=== PATIENT | male | born 1960 | race Caucasian/White ===

== ENCOUNTER 2020-04-12 17:16 | Inpatient (IN) | payer OTHER ==
--- OUTSIDE RECORDS SUMMARY | 2020-04-12 17:22 | XMS ---
:1960 Author Organization [facility] Support Name Relationship Address Phone UE Unavailable Unavailable Unavailable DANIEL DAVILA SIGNIFICANT OTHER [address] [place] [address] Re-disclosure Warning The records that you are about to access may contain information from federally- assisted alcohol or drug abuse programs. If such information is present, then the following federally mandated warning applies: This information has been disclosed to you from records protected by federal confidentiality rules (42 CFR part 2). The federal rules prohibit you from making any further disclosure of this information unless further disclosure is expressly permitted by the written consent of the person to whom it pertains or as otherwise permitted by 42 CFR part 2. A general authorization for the release of medical or other information is NOT sufficient for this purpose. The Federal rules restrict any use of the information to criminally investigate or prosecute any alcohol or drug abuse patient.The records that you are about to access may contain highly sensitive health information, the redisclosure of which is protected by Article 27-F of the [facility] Public Health law. If you continue you may haveaccess to information: Regarding HIV / AIDS; Provided by facilities licensed or operated by the [facility] Office of Mental Health; or Provided by the [facility] Office for People With Developmental Disabilities. If such information is present, then the following [facility] mandated warning applies: This information has been disclosed to you from confidential records which are protected by state law. State law prohibits you from making any further disclosure of this information without the specific written consent of the person to whom it pertains, or as otherwise permitted by law. Any unauthorized further disclosure in violation of state law may result in a fine or skilled nursing sentence or both. A general authorization for the release of medical or other information is NOT sufficient authorization for further disclosure. Allergies and Adverse Reactions Type Description Substance Reaction Status Data Source(s ) No Known No Known Allergies No Known eCW3 ( [facility] Allergies Allergies [facility]) No Known No Known Allergies No Known eCW3 ( [facility] Allergies Allergies [facility]) Encounters Encounter Providers Location Date Indications Data Source(s ) Outpatient [facility] 09/22/2018 eCW3 ([facility] 12:00:00 AM [facility] - [facility]) 09/22/2018 12:00:[address] Est Psych [facility] 09/18/2018 eCW3 ([facility] 12:00:00 AM [facility]) 09/18/2018 12:00:00 AM EDT Medications Medication Brand Start Product Dose Route Administrative Pharmacy [facility] Indications Reaction Description Data Name Date Form Instructions Instructions Source(s) Bupropion BuPROP .0 active BuPROPion eCW3 Hydrochlori ion 2018 {tabl HCl 75 MG (H udson de 75 MG HCl 75 12:00: ets} [facility] Oral Tablet MG 00 AM Health BuPROPion EDT [facility]) HCl 75 MG Bupropion BuPROP .0 active BuPROPion eCW3 Hydrochlori ion 2018 {tabl HCl 75 MG (H udson de 75 MG HCl 75 12:00: ets} [facility] Oral Tablet MG 00 AM Health BuPROPion EDT Care) HCl 75 MG Hydroxyzine Vistar .0 active Vistari l 25 eCW3 Pamoate 25 il 2018 {caps MG (Yi MG Oral MG 12:00: ule_a [facility] Capsule 00 AM [facility] [Vistaril] EDT ded} Care) Vistaril 25 MG Hydroxyzine Vistar .0 active Vistari l 25 eCW3 Pamoate 25 il 2018 {caps MG (Yi MG Oral MG 12:00: ule_a [facility] Capsule 00 AM [facility] [Vistaril] EDT ded} Care) Vistaril 25 MG Flomax UNK active Flomax eCW3 ([facility]) Symbicort UNK active Symbicort eCW 3 ([facility]) Klonopin UNK active Klonopin eCW3 ([facility]) Ventolin UNK active Ventolin HFA e CW3 HFA ([facility]) Ventolin UNK active Ventolin HFA e CW3 HFA ([facility]) Flomax UNK active Flomax eCW3 ([facility]) Klonopin UNK active Klonopin eCW3 ([facility]) Suboxone UNK active Suboxone eCW3 ([facility]) Suboxone UNK active Suboxone eCW3 ([facility]) Gabapentin UNK active Gabapentin e CW3 ([facility]) Symbicort UNK active Symbicort eCW 3 ([facility]) Sertraline UNK active Sertraline e CW3 HCl HCl ([facility]) Sertraline UNK active Sertraline e CW3 HCl HCl ([facility]) Gabapentin UNK active Gabapentin e CW3 ([facility]) Insurance Providers Payer name Policy type Policy ID Covered Covered republican's Policy P ty / Coverage republican ID relationship to P[employer]co Inf ormation type pacheco [facility] [id number] FIRST Problems, Conditions, and Diagnoses Code Display Name Description Problem Type Effective Dates Data Source(s) F33.1 Moderate episode Moderate episode Problem 09/22/2018 eC W3 ([facility]i of recurrent of recurrent major 12:00:[address] [facility] ([place], [place]) major depressive depressive Care) disorder disorder F32.9 Reactive Reactive Problem 09/18/2018 eCW3 ([facility] depression depression 12:00:00 AM [facility] Care) F41.9 Anxiety Anxiety Problem 09/18/2018 eCW3 (Yi 12:00:00 AM [facility] Care) Results ID Date Data Source [id number] 03/01/2020 11:42:00 AM EDT [facility] Name Value Range Interpretation Description Data Sup porting Code Source(s) Document(s ) SARS-CoV-2 [facility] (COVID-19) RNA panel - Unspecified specimen by RON with probe detection This lab was ordered by and reported by [facility]. ID Date Data Source [id number] 02/25/2020 06:30:00 AM EDT [facility] Name Value Range Interpretation Description Data Sup porting Code Source(s) Document(s ) 2019 Novel [facility] Coronavirus RNA Interpretation Unspecified Specimen Qualitative RON Probe Detection This lab was ordered by Mike at [facility] - [id number] and reported by [facility]. ID Date Data Source [id number] 02/12/2020 11:57:00 PM EDT [facility] Name Value Range Interpretation Code Description Data Fior rce(s) Supporting Document(s ) Johns ID [facility] NOW COVID-19 assay This lab was ordered by [facility] and reported by [facility]. ID Date Data Source [id number] 01/20/2020 11:30:00 AM EDT [facility] Name Value Range Interpretation Code Description Data Fior rce(s) Supporting Document(s ) SARS-COV-2 [facility] PCR This lab was ordered by MAGALY SONG and re ported by [facility]. ID Date Data Source [id number] 01/19/2020 01:39:00 PM EDT [facility] Name Value Range Interpretation Code Description Data Fior rce(s) Supporting Document(s ) SARS-COV-2 [facility] PCR This lab was ordered by CHRISTOPHER Root and r eported by [facility]. ID Date Data Source [id number] 09/18/2019 04:00:00 PM EDT [facility] Name Value Range Interpretation Description Data Sup porting Code Source(s) Document(s ) 2019 Novel [facility] Coronavirus RNA Interpretation Unspecified Specimen Qualitative RON Probe Detection This lab was ordered by Mike at [facility] - [id number] and reported [facility]. Procedure Social History Code Duration Value Status Description Data Source(s ) Smoking 09/22/2018 Current Smoker completed Current Smoker eCW3 ( [facility] 12:00:00 AM [facility] [place]) Smoking 09/22/2018 Current Smoker completed Current Smoker eCW3 ( [facility] 12:00:00 AM [facility] [place]) Current Smoker completed Current Smoker eCW3 ( [facility]) Current Smoker completed Current Smoker eCW3 ( [facility]) Vital Signs ID Date Data Source UNK Name Value Range Interpretation Code Description Data Source(s) Diastolic blood 83 mm[Hg] 83 mm[Hg] eCW3 ([facility]) Systolic blood 190 mm[Hg] 190 mm[Hg] eCW3 ([facility]) Body temperature 97.6 [degF] 97.6 [degF] eCW3 ( [facility]) Heart rate 18 /min 18 /min eCW3 ([facility]) Body weight 210 [lb_av] 210 [lb_av] eCW3 ([facility]) Patient Treatment Plan of Care Planned Activity Planned Date Details Description Data Source (s) Bupropion Hydrochloride 09/22/2018 12:00:00 eCW3 ([facility] 75 MG Oral Tablet AM EDT Health Car e) Hydroxyzine Pamoate 25 MG 09/22/2018 12:00:00 eCW3 ([facility] Oral Capsule [Vistaril] AM EDT [facility]al th Care) Bupropion Hydrochloride 09/22/2018 12:00:00 eCW3 ([facility] 75 MG Oral Tablet AM EDT Health Car e) Hydroxyzine Pamoate 25 MG 09/22/2018 12:00:00 eCW3 ([facility] Oral Capsule [Vistaril] AM EDT Heal Care) Klonopin eCW3 ([facility]) Suboxone eCW3 ([facility]) Symbicort eCW3 ([facility]) Sertraline HCl eCW3 ([facility]) Gabapentin eCW3 ([facility]) Flomax eCW3 ([facility]) Ventolin HFA eCW3 ([facility]) Klonopin eCW3 ([facility]) Suboxone eCW3 ([facility]) Symbicort eCW3 ([facility]) Sertraline HCl eCW3 ([facility]) Gabapentin eCW3 ([facility]) Flomax eCW3 ([facility]) Ventolin HFA eCW3 ([facility])
[2020-04-12 17:41] VITALS: BMI 28.7
--- NOTE | 2020-04-12 17:46 | BHS.RME ---
Substance Use & Tx History - Substance Use History Xanax Substance amount: 2 x 2mg tablet Frequency of use: Daily Substance route: Oral Date of Last Use: 04/11/20 - Last Treatment Date of last treatment: December 2019 Where was last treatment: Detox ([facility]) Physical/Psych/Mental Status - Behavior Eye Contact: Normal - Cooperativeness Cooperativeness: Cooperative - Thinking Thought Processes: Logical Thought content: Future oriented - Physical Health Problems Is patient presently having any pain?: No Does patient presently have any injuries (include location): No Does patient currently have a fever: No Is patient : No CIWA Nausea/Vomitin-No Nausea/No Vomiting Muscle Tremors: 3 Anxiety: 5 Agitation: 3 Paroxysmal Sweats: 3 Orientation: 0-Oriented Tacttile Disturbances: 0-None Auditory Disturbances: 0-None Visual Disturbances: 0-None Headache: 0-None Present CIWA-Ar Total Score: 14 Treatment Recommendation - Level of Care Level of Care: Opioid Treatment Program (OTP) (Xanax detoxification - On Suboxone the[place])
--- NOTE | 2020-04-12 18:14 | HP ---
CIWA Score Nausea/Vomitin-No Nausea/No Vomiting Muscle Tremors: 3 Anxiety: 5 Agitation: 3 Paroxysmal Sweats: 3 Orientation: 0-Oriented Tacttile Disturbances: 0-None Auditory Disturbances: 0-None Visual Disturbances: 0-None Headache: 0-None Present CIWA-Ar Total Score: 14 - Admission Criteria OASAS Guidelines: Admission for Medically Managed Detox: Requires at least one of the followin. CIWA greater than 12 2. Seizures within the past 24 hours 3. Delirium tremens within the past 24 hours 4. Hallucinations within the past 24 hours 5. Acute intervention needed for co occurring medical disorder 6. Acute intervention needed for co occurring psychiatric disorder 7. Severe withdrawal that cannot be handled at a lower level of care (continued vomiting, continued diarrhea, abnormal vital signs) requiring intravenous medication and/or fluids 8. Admission ROS S - [facility] Chief Complaint: Seeking admission to detox from Xanax Allergies/Adverse Reactions: Allergies Allergy/AdvReac Type Severity Reaction Status Date / Time No Known Allergies Allergy Verified 04/12/20 17:56 History of Present Illness: 59 years old male with 2 years of benzodiazepine dependence is seeking admission to detox. He reports that he was on Klonopin but he was abusing the medication and his provider took him off Klonopin and prescribed Gababentin due to his abuse but he continued buying Xanax from the street. He uses 2 x 2mg Xanax daily. He has medical history of COPD, BPH, peripheral vascular disease, CHF, heart murmur, psych. history of anxiety, depression and he denies suicidal ideation at this time. Patient is unemployed on SSI, lives in a intermediate and denies legal issues. He reports blackouts and overdose(heroin). His right leg is swollen possibly venous stasis. He reports that he was recommended "water pill" but due to his enlarged prostate, he did not want to be going to the bathroom constantly. Lung field clear on auscultation except for mild wheezing. Chest x- ray will be ordered to evaluate pulmonary and cardiac issues and floor provider will be endorsed to follow up with outcome. Exam Limitations: Clinical Condition (difficulty breathing, right leg swelling with mild pain) - Ebola screening Have you traveled outside of the country in the last 21 days: No Have you had contact with anyone from an Ebola affected area: No Have you been sick,other than usual withdrawal symptoms: No Do you have a fever: No - Review of Systems Constitutional: Malaise, Night Sweats, Changes in sleep EENT: reports: No Symptoms Reported Respiratory: reports: No Symptoms reported Cardiac: reports: No Symptoms Reported GI: reports: No Symptoms Reported, Constipated, Nausea, Poor Fluid Intake, Abdominal cramping : reports: No Symptoms Reported Musculoskeletal: reports: No Symptoms Reported Integumentary: reports: Dryness, Flushing Neuro: reports: Tremors Endocrine: reports: No Symptoms Reported Hematology: reports: No Symptoms Reported Psychiatric: reports: Mood/Affect Appropiate, Anxious, Depressed Other Systems: Reviewed and Negative Patient History - Patient Medical History Hx Anemia: Yes Hx Asthma: No Hx Chronic Obstructive Pulmonary Disease (COPD): Yes Hx Cancer: No Hx Cardiac Disorders: Yes (Heart murmur) Hx Congestive Heart Failure: Yes Hx Hypertension: No Hx Hypercholesterolemia: No Hx Pacemaker: No HX Cerebrovascular Accident: No Hx Seizures: No Hx Dementia: No Hx Diabetes: No Hx Gastrointestinal Disorders: Yes (GERD ) Hx Liver Disease: Yes (Hep C, Hep B) Hx Genitourinary Disorders: Yes (BPH ) Hx Sexually Transmitted Disorders: No Hx Renal Disease (ESRD): No Hx Thyroid Disease: No Hx Human Immunodeficiency Virus (HIV): No (Negative ) Hx Hepatitis C: Yes (Treated 2013) Hx Depression: Yes (+ Anxiety -Gabapentin) Hx Suicide Attempt: No (Denies suicidal ideation at this time) Hx Bipolar Disorder: No Hx Schizophrenia: No - Patient Surgical History Past Surgical History: Yes Hx Neurologic Surgery: No Hx Cataract Extraction: No Hx Cardiac Surgery: No Hx Lung Surgery: No Hx Abdominal Surgery: No Hx Appendectomy: No Hx Cholecystectomy: No Hx Genitourinary Surgery: No Hx Orthopedic Surgery: No Other Surgical History: Left Masoidectomy 1985 Anesthesia Reaction: No - PPD History Previous Implant?: Yes Documented Results: Negative w/o proof Implanted On Prior [facility] Admission?: No PPD to be Administered?: Yes - Reproductive History Patient is a Female of Child Bearing Age (11 -55 yrs old): No (Male) - Smoking Cessation Smoking history: Current every day smoker Have you smoked in the past 12 months: Yes Aproximately how many cigarettes per day: 10 Hx Chewing Tobacco Use: No Initiated information on smoking cessation: Yes 'Breaking Loose' booklet given: 04/12/20 - Substance & Tx. History Hx Alcohol Use: Yes Hx Substance Use: Yes Substance Use Type: Prescribed (suboxone), Tranquilizers Hx Substance Use Treatment: Yes [facility]) - Substances abused Alprazolam (Xanax) Substance route: Oral Frequency: Daily Amount used: 4mg Age of first use: 34 Date of last use: 04/11/20 Admission Physical Exam [facility] - Vital Signs Vital Signs: Vital Signs - 24 hr 04/12/20 17:40 Temperature 97.3 F L Pulse Rate 71 Respiratory 18 Rate Blood Pressure 145/94 - Physical General Appearance: Yes: Moderate Distress, Irritable, Anxious HEENTM: Yes: Within Normal Limits Respiratory: Yes: Labored Respiration Neck: Yes: Within Normal Limits Breast: Yes: Breast Exam Deferred Abdominal: Yes: Normal Bowel Sounds, Protuberent Genitourinary: Yes: Within Normal Limits Back: Yes: Normal Inspection Musculoskeletal: Yes: Within Normal Limits Extremities: Yes: Tremors Neurological: Yes: Within Normal Limits Integumentary: Yes: Other (right lower extremity edema) Lymphatic: Yes: Within Normal Limits - Diagnostic (1) Benzodiazepine dependence Current Visit: Yes Status: Acute (2) Heart murmur Current Visit: Yes Status: Chronic (3) BPH (benign prostatic hyperplasia) Current Visit: Yes Status: Chronic Qualifiers: Lower urinary tract symptom presence: unspecified whether lower urinary tract symptoms present Qualified Code(s): N40.0 - Benign prostatic hyperplasia without lower urinary tract symptoms (4) COPD (chronic obstructive pulmonary disease) Current Visit: Yes Status: Chronic Qualifiers: COPD type: unspecified COPD Qualified Code(s): J44.9 - Chronic obstructive pulmonary disease, unspecified (5) CHF (congestive heart failure) Current Visit: Yes Status: Chronic Qualifiers: Heart failure type: unspecified Heart failure chronicity: unspecified Qualified Code(s): I50.9 - Heart failure, unspecified (6) PVD (peripheral vascular disease) Current Visit: Yes Status: Chronic (7) GERD (gastroesophageal reflux disease) Current Visit: Yes Status: Chronic Qualifiers: Esophagitis presence: esophagitis presence not specified Qualified Code(s): K21.9 - Gastro-esophageal reflux disease without esophagitis (8) Hep B w/o coma Current Visit: Yes Status: Chronic (9) Nicotine dependence Current Visit: Yes Status: Chronic Qualifiers: Nicotine product type: cigarettes Substance use status: uncomplicated Qualified Code(s): F17.210 - Nicotine dependence, cigarettes, uncomplicated Cleared for Admission [facility] - Detox or Rehab [facility] Level of Care: Medically Managed Detox Regimen/Protocol: Valium Claeared for Rehab Admission: No Breathalyzer - Breathalyzer Breathalyzer: 0 Urine Drug Screen - Test Device Lot number: [id number] Expiration date: 10/13/21 - Control Is test valid?: Yes - Results Drug screen NEGATIVE: No Urine drug screen results: BZO-Benzodiazepines, BUP-Suboxone Inpatient Rehab Admission - Rehab Decision to Admit Inpatient rehab admission?: No
[2020-04-12] MEDS ORDERED: ACETAMINOPHEN 325 MG TABLET (FP) PO PRN ×2 (18:53)
[2020-04-12] MEDS ORDERED: BISMUTH SUBSALICYLATE 524 MG/30 ML UD PO PRN (18:53)
[2020-04-12] MEDS ORDERED: MAG HYDROX/AL HYDROX/SIMETH 30 ML UNIT-DOSE CUP PO PRN (18:53)
[2020-04-12] MEDS ORDERED: ONDANSETRON *ODT* 4 MG TABLET SL PRN (18:53)
[2020-04-12] MEDS ORDERED: MAGNESIUM HYDROX 2400MG/30ML ORAL SUSPENSION 30 ML CUP PO PRN (18:53)
[2020-04-12] MEDS ORDERED: MAGNESIUM CITRATE 300 ML BOTTLE PO PRN (18:53)
[2020-04-12] MEDS ORDERED: NICOTINE POLACRILEX 2 MG GUM BUC PRN (18:53)
[2020-04-12] MEDS ORDERED: METHOCARBAMOL 500 MG TABLET PO PRN (18:53)
[2020-04-12] MEDS ORDERED: MENTHOL/PHENOL 1 EACH UD MM PRN (18:53)
--- OUTSIDE RECORDS SUMMARY | 2020-04-12 19:24 | XMS ---
:1960 Author Organization [facility] Support Name Relationship Address Phone UE Unavailable Unavailable Unavailable DANIEL DAVILA SIGNIFICANT OTHER [address] [place] [address] Re-disclosure Warning The records that you are [...] is protected by Article 27-F of the [facility] Public Health law. If you continue you may haveaccess to information: Regarding HIV / AIDS; Provided by facilities licensed or operated by the [facility] Office of Mental Health; or Provided by the [facility] Office for People With Developmental Disabilities. If such information is present, then the following [facility] mandated warning applies: This information [...] law may result in a fine or group home sentence or both. A general authorization for the release of medical or other information is NOT sufficient authorization for further disclosure. Allergies and Adverse Reactions Type Description Substance Reaction Status Data Source(s ) No Known No Known Allergies No Known eCW3 ( [facility]) No Known No Known Allergies No Known eCW3 ( [facility]) Encounters Encounter Providers Location Date Indications Data Source(s ) Outpatient [facility] 09/22/2018 eCW3 ([facility] 12:00:00 AM [facility] - [facility]) 09/22/2018 12:00:00 AM EDT Est Psych [facility] 09/18/2018 eCW3 ([facility] 12:00:00 [facility] - [facility]) 09/18/2018 12:00:00 AM EDT Medications Medication Brand Start Product Dose Route Administrative Pharmacy [facility] Indications Reaction Description Data Name Date Form Instructions Instructions Source(s) Bupropion BuPROP 0 active BuPROPion eCW3 Hydrochlori ion 2018 {tabl HCl 75 MG (H udson de 75 MG HCl 75 12:00: ets} [facility] Tablet MG 00 AM [facility] BuPROPion EDT Care) HCl 75 MG Bupropion BuPROP 0 active BuPROPion eCW3 Hydrochlori ion 2018 {tabl HCl 75 MG (H udson de 75 MG HCl 75 12:00: ets} [facility] Oral Tablet MG 00 AM Health BuPROPion EDT Care) HCl 75 MG Hydroxyzine Vistar .0 active Vistari l 25 eCW3 Pamoate 25 2018 {caps MG ([facility] MG Oral MG 12:00: ule_a [facility] Capsule 00 AM [facility] [Vistaril] EDT ded} Care) Vistaril 25 MG Hydroxyzine Vistar .0 active Vistari l 25 eCW3 Pamoate 25 2018 {caps MG ([facility] MG Oral MG 12:00: ule_a [facility] Capsule 00 AM [facility] [Vistaril] EDT ded} Care) Vistaril 25 MG Flomax UNK active Flomax eCW3 ([facility]) Symbicort UNK active Symbicort eCW 3 ([facility]) Klonopin UNK active Klonopin eCW3 ([facility]) Ventolin UNK active Ventolin HFA e CW3 HFA ([facility]) Ventolin UNK active Ventolin HFA e CW3 HFA ([facility]) Flomax UNK active Flomax eCW3 ([facility]) Klonopin UNK active Klonopin eCW3 ([facility]) Suboxone UNK active Suboxone eCW3 ([facility]) Suboxone UNK active Suboxone eCW3 ([facility]) Gabapentin UNK active Gabapentin e CW3 ([facility]) Symbicort UNK active Symbicort eCW 3 ([facility]) Sertraline UNK active Sertraline e CW3 HCl HCl ([facility]) Sertraline UNK active Sertraline e CW3 HCl HCl ([facility]) Gabapentin UNK active Gabapentin e CW3 ([facility]) Insurance Providers Payer name Policy type Policy ID Covered Covered alliance party's Policy P ty / Coverage alliance party ID relationship to P[place]co Inf ormation type pacheco [facility] [id number] FIRST Problems, Conditions, and Diagnoses Code Display Name Description Problem Type Effective Dates Data Source(s) F33.1 Moderate episode Moderate episode Problem 09/22/2018 eC W3 ([facility] of recurrent of recurrent major 12:00:00 AM [facility] major depressive depressive Care) disorder disorder F32.9 Reactive Reactive Problem 09/18/2018 eCW3 ([facility] depression depression 12:00:00 AM [facility] Care) F41.9 Anxiety Anxiety Problem 09/18/2018 eCW3 ([facility] 12:00:00 AM [facility] Care) Results ID Date Data Source [id number] 03/01/2020 11:42:00 AM EDT [facility] Name Value Range Interpretation Description Data Sup porting Code Source(s) Document(s ) SARS-CoV-2 [facility] (COVID-19) RNA panel - Unspecified specimen by RON with probe detection This lab was ordered by and reported by [facility]. ID Date Data Source [id number] 02/25/2020 06:30:00 AM EDT [facility] Name Value Range Interpretation Description Data Sup porting Code Source(s) Document(s ) 2019 Novel [facility] Coronavirus RNA Interpretation Unspecified Specimen Qualitative RON Probe Detection This lab was ordered by Mike at [facility] - [id number] and reported by [facility]. ID Date Data Source [id number] 02/12/2020 11:57:00 PM EDT [facility] Name Value Range Interpretation Code Description Data Fior rce(s) Supporting Document(s ) Johns ID [facility] NOW COVID-19 assay This lab was ordered by [facility] and reported by [facility]. ID Date Data Source [id number] 01/20/2020 11:30:00 AM EDT [facility] Name Value Range Interpretation Code Description Data Fior rce(s) Supporting Document(s ) SARS-COV-2 [facility] PCR This lab was ordered by MAGALY SONG and re ported by [facility]. ID Date Data Source [id number] 01/19/2020 01:39:00 PM EDT [facility] Name Value Range Interpretation Code Description Data Fior rce(s) Supporting Document(s ) SARS-COV-2 [facility] PCR This lab was ordered by CHRISTOPHER Root and r eported by [facility]. ID Date Data Source [id number] 09/18/2019 04:00:00 PM EDT [facility] Name Value Range Interpretation Description Data Sup porting Code Source(s) Document(s ) 2018 Novel [facility] Coronavirus RNA Interpretation Unspecified Specimen Qualitative RON Probe Detection This lab was ordered by [facility] - [id number] and reported by [facility]. Procedure Social History Code Duration Value Status Description Data Source(s ) Smoking 09/22/2018 Current Smoker completed Current Smoker eCW3 ( [facility] 12:00:00 AM [facility] Health Al re) Smoking 09/22/2018 Current Smoker completed Current Smoker eCW3 ( [facility] 12:00:00 AM [facility] Health Al re) Current Smoker completed Current Smoker eCW3 ( [facility]) Current Smoker completed Current Smoker eCW3 ( [facility]) Vital Signs ID Date Data Source UNK Name Value Range Interpretation Code Description Data Source(s) Diastolic blood 83 mm[Hg] 83 mm[Hg] eCW3 ([facility]) Systolic blood 190 mm[Hg] 190 mm[Hg] eCW3 ([facility]) Body temperature 97.6 [degF] 97.6 [degF] eCW3 ( [facility]) Heart rate 18 /min 18 /min eCW3 ([facility]) Body weight 210 [lb_av] 210 [lb_av] eCW3 ([facility]) Patient Treatment Plan of Care Planned Activity Planned Date Details Description Data Source (s) Bupropion Hydrochloride 09/22/2018 12:00:00 eCW3 ([facility] [place] 75 MG Oral Tablet AM EDT Health Car e) Hydroxyzine Pamoate 25 MG 09/22/2018 12:00:00 eCW3 ([facility] Oral Capsule [Vistaril] AM EDT Heal th Care) Bupropion Hydrochloride 09/22/2018 12:00:00 eCW3 ([facility] 75 MG Oral Tablet AM EDT Health Car e) Hydroxyzine Pamoate 25 MG 09/22/2018 12:00:00 eCW3 ([facility] Oral Capsule [Vistaril] AM EDT Heal th Care) Klonopin eCW3 ([facility]) Suboxone eCW3 ([facility]) Symbicort eCW3 ([facility]) Sertraline HCl eCW3 ([facility]) Gabapentin eCW3 ([facility]) Flomax eCW3 ([facility]) Ventolin HFA eCW3 ([facility]) Klonopin eCW3 ([facility]) Suboxone eCW3 ([facility]) Symbicort eCW3 ([facility]) Sertraline HCl eCW3 ([facility]) Gabapentin eCW3 ([facility]) Flomax eCW3 ([facility]) Ventolin HFA eCW3 ([facility])
[2020-04-12] MEDS: diazePAM 5 MG TABLET PO PRN (20:03)
[2020-04-12] MEDS: IBUPROFEN 400 MG TABLET (FP) PO PRN (20:04)
[2020-04-12] MEDS: THIAMINE HCL 100 MG TABLET (FP) PO SCH (22:50)
[2020-04-12] MEDS: diazePAM 5 MG TABLET PO SCH (22:50)
[2020-04-12] MEDS: MELATONIN 5 MG TABLETS PO SCH (22:57)
[2020-04-13] MEDS: PANTOPRAZOLE 40 MG TABLET PO SCH (06:26)
[2020-04-13] MEDS: diazePAM 5 MG TABLET PO SCH ×4 (06:27→22:05)
--- NOTE | 2020-04-13 08:48 | EKG ---
Test Reason : Blood Pressure : / mmHG Vent. Rate : 068 BPM Atrial Rate : 068 BPM P-R Int : 138 ms QRS Dur : 084 ms QT Int : 402 ms P-R-T Axes : 073 062 051 degrees QTc Int : 427 ms NORMAL SINUS RHYTHM POSSIBLE LEFT ATRIAL ENLARGEMENT BORDERLINE ECG NO PREVIOUS ECGS AVAILABLE Confirmed by Jordi Maurice MD ([id number]) on 04/13/2020 8:47:04 AM Referred By: Confirmed By:Jordi Maurice MD
[2020-04-13] MEDS: PRENATAL VITAMINS W/ FOLIC ACID TABLET (FP) PO SCH (10:01)
[2020-04-13] MEDS: TAMSULOSIN HCL 0.4 MG CAP PO SCH (10:01)
[2020-04-13] MEDS: NICOTINE 14 MG/24 HOURS TOPICAL PATCH TD SCH (10:02)
[2020-04-13] MEDS ORDERED: BUPRENORPHINE/NALOXONE 8 MG/2 MG FILM PACKET SL ONE (10:19)
--- NOTE | 2020-04-13 10:57 | PN ---
S CIWA - CIWA Score Nausea/Vomitin Muscle Tremors: 3 Anxiety: 3 Agitation: 2 Paroxysmal Sweats: No Perspiration Orientation: 0-Oriented Tacttile Disturbances: 1-Very Mild Itch/Numbness Auditory Disturbances: 0-None Visual Disturbances: 0-None Headache: 2-Mild CIWA-Ar Total Score: 13 B[facility] Progress Note (SOAP) Subjective: alert,irritable,anxious,interrupted sleep,tremor,pain in the body and back,agitated Objective: 04/13/20 17:00 Vital Signs Temperature 97.3 F L 04/13/20 12:26 Pulse Rate 81 04/13/20 12:26 Respiratory Rate 18 04/13/20 12:26 Blood Pressure 131/76 04/13/20 12:26 O2 Sat by Pulse Oximetry (%) 96 04/13/20 12:26 Assessment: 04/13/20 17:03 withdrawal symptom Plan: continue detox [facility],patient stated loss his suboxone and all his medication ,on suboxone sl 8mgs/2 mgs bid ,last filled on 04/02/20 #7,most of the time for bid,suboxone 8mgs/2mgs sl film bid ordered,close monitoring
[2020-04-13] MEDS: GABAPENTIN 300 MG CAPSULE PO SCH ×2 (14:03→22:06)
--- NOTE | 2020-04-13 17:09 | CONSULT ---
[facility] Psychiatric Consult - Data Date of interview: 04/13/20 Admission source: [facility] Identifying data: First admission to [address] for this 59 y/o male self-referred for detoxification treatment. FABIANA issues : benzodiazepine, opioid, nicotine. Substance Abuse History: Discussed with the patient. FABIANA profile as follows : Smoking history: Current every day smoker. Have you smoked in the past 12 months: Yes. Approximately how many cigarettes per day: 10. Hx Chewing Tobacco Use: No. Initiated information on smoking cessation: Yes. 'Breaking Loose' booklet given: 04/12/20. - Substance & Tx. History. Hx Alcohol Use: Yes. Hx Substance Use: Yes. Substance Use Type: Prescribed (suboxone), Tranquilizers. Hx Substance Use Treatment: Yes ([facility]). - Substances abused. Alprazolam (Xanax). Substance route: Oral. Frequency: Daily. Amount used: 4mg. Age of first use: 34. Date of last use: 04/11/20. Medical History: Medical profile is remarkable for COPD, benign prostatic hyperplasia (BPH), peripheral vascular disease, congestive heart failure, heart murmur, GERD, anemia, hepatitis C + B and history of mastoidectomy (1984). Psychiatric History: Patient denies history of psychiatric hospitalizations, OPD care or suicide attempts. Mr Lyle reports that multiple losses ( friends, dilapidated career, financial strains) had caused him to withdraw from others + experience dysphoria and anxiety. His primary care doctor is currently prescribing gabapentin. The patient informs that he has been scheduled to see a therapist from the same group practice. Physical/Sexual Abuse/Trauma History: Traumas : deaths of several close friends. Additional Comment: Urine drug screen results: BZO-Benzodiazepines, BUP- Suboxone. Noted. Mental Status Exam - Mental Status Exam Alert and Oriented to: Time, Place, Person Cognitive Function: Good Patient Appearance: Unkempt, Disheveled (obese) Mood: Withdrawn, Hopeful Affect: Mood Congruent, Constricted Patient Behavior: Fatigued, Appropriate, Cooperative Speech Pattern: Clear, Appropriate Voice Loudness: Normal Thought Process: Intact, Goal Oriented Thought Disorder: Not Present Hallucinations: Denies Suicidal Ideation: Denies Homicidal Ideation: Denies Insight/Judgement: Poor Sleep: Well Appetite: Good Gait/Station: Normal Psychiatric Findings - Problem List ([place] 1, 2,3) (1) Opioid dependence on agonist therapy Current Visit: Yes Status: Chronic (2) Benzodiazepine dependence Current Visit: Yes Status: Chronic (3) Nicotine dependence Current Visit: Yes Status: Chronic Qualifiers: Nicotine product type: cigarettes Substance use status: uncomplicated Qualified Code(s): F17.210 - Nicotine dependence, cigarettes, uncomplicated (4) Substance induced mood disorder Current Visit: Yes Status: Chronic (5) Insomnia Current Visit: Yes Status: Acute - Initial Treatment Plan Initial Treatment Plan: Psychoeducation. Sleep hygiene. Support. Detoxification. Continue gabapentin. Side effects/benefits discussed in session. nsomnia is addressed with melatonin. Patient has consented to follow this plan of care. Observation.
[2020-04-13] MEDS: THIAMINE HCL 100 MG TABLET (FP) PO SCH (22:06)
[2020-04-13] MEDS: BUPRENORPHINE/NALOXONE 8 MG/2 MG FILM PACKET SL SCH (22:06)
[2020-04-13] MEDS: MELATONIN 5 MG TABLETS PO SCH (22:06)
[2020-04-14] MEDS: GABAPENTIN 300 MG CAPSULE PO SCH ×3 (05:20→22:09)
[2020-04-14] MEDS: diazePAM 5 MG TABLET PO SCH ×3 (05:21→22:09)
[2020-04-14] MEDS: PANTOPRAZOLE 40 MG TABLET PO SCH (07:21)
[2020-04-14] MEDS: BUPRENORPHINE/NALOXONE 8 MG/2 MG FILM PACKET SL SCH ×2 (09:20→18:12)
[2020-04-14] MEDS: TAMSULOSIN HCL 0.4 MG CAP PO SCH (09:20)
[2020-04-14] MEDS: PRENATAL VITAMINS W/ FOLIC ACID TABLET (FP) PO SCH (09:20)
[2020-04-14] MEDS: NICOTINE 14 MG/24 HOURS TOPICAL PATCH TD SCH (09:23)
[2020-04-14 10:31] LABS: HEMATOCRIT 42.1 % (35.4-49); HEMOGLOBIN 14.2 GM/dL (11.7-16.9); MCHC 33.8 g/dl (32.0-35.9); MEAN CELL VOLUME 88.8 fl (80-96); MEAN PLT VOLUME 8.9 fl (7.5-11.1); PLATELET COUNT 170 K/MM3 (134-434); RBC 4.74 M/mm3 (4.00-5.60); RDW 13.9 % (11.9-15.9); WHITE BLOOD COUNT 5.5 K/mm3 (4.0-10.0)
[2020-04-14 10:34] LABS: ALBUMIN 3.2 g/dl (3.4-5.0); BILIRUBIN,TOTAL 0.2 mg/dL (0.2-1); BLOOD UREA NITROGEN 16.6 mg/dL (7-18); CALCIUM 8.7 mg/dL (8.5-10.1); CREATININE 0.7 mg/dL (0.55-1.3); POTASSIUM 4.3 mmol/L (3.5-5.1)
[2020-04-14] MEDS: IBUPROFEN 400 MG TABLET (FP) PO PRN (11:09)
--- NOTE | 2020-04-14 13:56 | PN ---
S CIWA - CIWA Score Nausea/Vomitin Muscle Tremors: 2 Anxiety: 2 Agitation: 2 Paroxysmal Sweats: No Perspiration Orientation: 0-Oriented Tacttile Disturbances: 1-Very Mild Itch/Numbness Auditory Disturbances: 0-None Visual Disturbances: 0-None Headache: 2-Mild CIWA-Ar Total Score: 11 S Progress Note (SOAP) Subjective: alert,ambulation on the unit,anxious,interrupted sleep,aching pain Objective: 04/14/20 17:38 Vital Signs Temperature 97.8 F 04/14/20 16:42 Pulse Rate 71 04/14/20 16:42 Respiratory Rate 18 04/14/20 16:42 Blood Pressure 116/80 04/14/20 16:42 O2 Sat by Pulse Oximetry (%) 98 04/14/20 12:45 04/14/20 17:38 Laboratory Last Values WBC 5.5 K/mm3 (4.0-10.0) 04/14/20 07:00 RBC 4.74 M/mm3 (4.00-5.60) 04/14/20 07:00 Hgb 14.2 GM/dL (11.7-16.9) 04/14/20 07:00 Hct 42.1 % (35.4-49) 04/14/20 07:00 MCV 88.8 fl (80-96) 04/14/20 07:00 MCH 30.0 pg (25.7-33.7) 04/14/20 07:00 MCHC 33.8 g/dl (32.0-35.9) 04/14/20 07:00 RDW 13.9 % (11.9-15.9) 04/14/20 07:00 Plt Count 170 K/MM3 (134-434) 04/14/20 07:00 MPV 8.9 fl (7.5-11.1) 04/14/20 07:00 Sodium 140 mmol/L (136-145) 04/14/20 07:00 Potassium 4.3 mmol/L (3.5-5.1) 04/14/20 07:00 Chloride 105 mmol/L (98-107) 04/14/20 07:00 Carbon Dioxide 31 mmol/L (21-32) 04/14/20 07:00 Anion Gap 5 MMOL/L (8-16) L 04/14/20 07:00 BUN 16.6 mg/dL (7-18) 04/14/20 07:00 Creatinine 0.7 mg/dL (0.55-1.3) 04/14/20 07:00 Est GFR (CKD-EPI)AfAm 118.88 04/14/20 07:00 Est GFR (CKD-EPI)NonAf 102.57 04/14/20 07:00 Random Glucose 81 mg/dL (74-106) 04/14/20 07:00 Calcium 8.7 mg/dL (8.5-10.1) 04/14/20 07:00 Total Bilirubin 0.2 mg/dL (0.2-1) 04/14/20 07:00 AST 10 U/L (15-37) L 04/14/20 07:00 ALT 17 U/L (13-61) 04/14/20 07:00 Alkaline Phosphatase 66 U/L (45-117) 04/14/20 07:00 Total Protein 6.0 g/dl (6.4-8.2) L 04/14/20 07:00 Albumin 3.2 g/dl (3.4-5.0) L 04/14/20 07:00 COVID-19 ([facility]) Not detected (Not Detected) 04/12/20 19:30 04/14/20 17:39 rpr pending Assessment: 04/14/20 17:39 withdrawal symptom Plan: continue detox valium regimen,continue suboxone 8mgs/2mgs sl film bid at 09.00 and 21.00
[2020-04-14] MEDS: MELATONIN 5 MG TABLETS PO SCH (22:09)
[2020-04-14] MEDS: THIAMINE HCL 100 MG TABLET (FP) PO SCH (22:10)
[2020-04-15] MEDS: GABAPENTIN 300 MG CAPSULE PO SCH ×3 (06:25→22:18)
[2020-04-15] MEDS: diazePAM 5 MG TABLET PO SCH ×2 (06:26→17:23)
[2020-04-15] MEDS: BUPRENORPHINE/NALOXONE 8 MG/2 MG FILM PACKET SL SCH ×2 (06:26→18:26)
[2020-04-15] MEDS: PANTOPRAZOLE 40 MG TABLET PO SCH (06:26)
[2020-04-15] MEDS: TAMSULOSIN HCL 0.4 MG CAP PO SCH (10:16)
[2020-04-15] MEDS: PRENATAL VITAMINS W/ FOLIC ACID TABLET (FP) PO SCH (10:16)
[2020-04-15] MEDS: NICOTINE 14 MG/24 HOURS TOPICAL PATCH TD SCH (10:16)
[2020-04-15] MEDS: diazePAM 5 MG TABLET PO PRN (10:53)
--- NOTE | 2020-04-15 11:07 | PN ---
S Progress Note (SOAP) Subjective: Pt concerned about his place at the [facility], he is concerned that being here may cause him to loose his bed there Objective: 04/15/20 11:03 PE Gnl: WDWN, in no distress MS: nl mentatin Motor; moves limbs well Coord: grossly nl Gait: steady Laboratory Tests 04/12/20 04/14/20 04/14/20 19:30 07:00 07:00 WBC 5.5 RBC 4.74 Hgb 14.2 Hct 42.1 MCV 88.8 MCH 30.0 MCHC 33.8 RDW 13.9 Plt Count 170 MPV 8.9 Sodium 140 Potassium 4.3 Chloride 105 Carbon Dioxide 31 Anion Gap 5 L BUN 16.6 Creatinine 0.7 Est GFR (CKD-EPI)AfAm 118.88 Est GFR (CKD-EPI)NonAf 102.57 Random Glucose 81 Calcium 8.7 Total Bilirubin 0.2 AST 10 L ALT 17 Alkaline Phosphatase 66 Total Protein 6.0 L Albumin 3.2 L Syphilis Serology COVID-19 ([facility]) Not detected 04/14/20 07:00 WBC RBC Hgb Hct MCV MCH MCHC RDW Plt Count MPV Sodium Potassium Chloride Carbon Dioxide Anion Gap BUN Creatinine Est GFR (CKD-EPI)AfAm Est GFR (CKD-EPI)NonAf Random Glucose Calcium Total Bilirubin AST ALT Alkaline Phosphatase Total Protein Albumin Syphilis Serology Non-reactive COVID-19 ([facility]) Home Medication List Medication Instructions Recorded Confirmed Type Buprenorphine HCl/Naloxone HCl 1 each SL BID 04/12/20 04/12/20 History [Suboxone 8 mg-2 mg Sl Tablets] Gabapentin [Neurontin -] 300 mg PO TID 04/12/20 04/12/20 History Pantoprazole Sodium [Protonix -] 40 mg PO DAILY 04/12/20 04/12/20 History Tamsulosin HCl [Flomax] 0.4 mg PO DAILY 04/12/20 04/12/20 History Active Medications Generic Name Dose Route Start Last Admin Trade Name Freq PRN Reason Stop Dose Admin Acetaminophen 650 mg 04/12/20 18:53 Tylenol - PO Q6H PRN PAIN LEVEL 4 - 6 Acetaminophen 650 mg 04/12/20 18:53 Tylenol - PO Q6H PRN FEVER Al Hydroxide/Mg Hydroxide 30 ml 04/12/20 18:53 Mylanta Oral Suspension - PO Q6H PRN DYSPEPSIA Bismuth Subsalicylate 524 mg 04/12/20 18:53 Pepto-Bismol - PO Q1H PRN DIARRHEA Buprenorphine/Naloxone 1 each 04/14/20 19:00 04/15/20 06:26 Suboxone 8 Mg/2 Mg Film Packet SL 04/20/20 21:59 1 each 0700,1900 MAMADOU Administration Diazepam 5 mg 04/15/20 06:00 04/15/20 06:26 Valium - PO 04/15/20 18:01 5 mg Q12H MAMADOU Administration Diazepam 10 mg 04/12/20 18:53 04/15/20 10:53 Valium - PO 04/15/20 18:52 10 mg Q4H PRN Administration WITHDRAWAL(CONT SUBST) Diazepam 5 mg 04/16/20 06:00 Valium - PO 04/16/20 06:01 ONCE ONE Eucalyptus/Menthol/Phenol/Sorbitol 1 each 04/12/20 18:53 Cepastat Lozenge - MM 04/18/20 18:56 Q4H PRN SORE THROAT Gabapentin 300 mg 04/13/20 14:00 04/15/20 06:25 Neurontin - PO 300 mg TID MAMADOU Administration Ibuprofen 400 mg 04/12/20 18:53 04/14/20 11:09 Motrin - PO 400 mg Q6H PRN Administration PAIN LEVEL 1 - 3 Magnesium Citrate 300 ml 04/12/20 18:53 Citroma - PO Q48H PRN CONSTIPATION Magnesium Hydroxide 30 ml 04/12/20 18:53 Milk Of Magnesia - PO PRN PRN CONSTIPATION Melatonin 5 mg 04/12/20 22:00 04/14/20 22:09 Melatonin PO 5 mg HS MAMADOU Administration Methocarbamol 500 mg 04/12/20 18:53 Robaxin - PO 04/18/20 18:56 Q6H PRN MUSCLE SPASMS Nicotine 14 mg 04/13/20 10:00 04/15/20 10:16 Nicoderm Patch - TD 14 mg DAILY MAMADOU Administration Nicotine Polacrilex 2 mg 04/12/20 18:53 Nicorette Gum - BUC Q2H PRN NICOTINE REPLACEMENT RX Ondansetron HCl 4 mg 04/12/20 18:53 Zofran Odt - SL Q8H PRN Nausea/Vomiting Pantoprazole Sodium 40 mg 04/13/20 07:00 04/15/20 06:26 Protonix - PO 40 mg ACBK MAMADOU Administration Multivit/Folic Acid/Iron 1 tab 04/13/20 10:00 04/15/20 10:16 Vitamins (Sjr) - PO 1 tab DAILY MAMADOU Administration Tamsulosin HCl 0.4 mg 04/13/20 08:30 04/15/20 10:16 Flomax - PO 0.4 mg DAILY@0830 MAMADOU Administration Thiamine HCl 100 mg 04/12/20 22:00 04/14/20 22:10 Vitamin B1 - PO 100 mg HS MAMADOU Administration Vital Signs Temperature 97.1 F L 04/15/20 08:36 Pulse Rate 87 04/15/20 08:36 Respiratory Rate 20 04/15/20 08:36 Blood Pressure 112/80 04/15/20 08:36 O2 Sat by Pulse Oximetry (%) 97 04/15/20 06:50 Assessment: 04/15/20 11:03 59 years old male with 2 years of benzodiazepine dependence. He reports that he was on Klonopin but he was abusing the medication and his provider took him off Klonopin and prescribed Gababentin due to his abuse but he continued buying Xanax from the street. He uses 2 x 2mg Xanax daily. PMH: COPD, BPH, peripheral vascular disease, CHF, heart murmur, psych. history of anxiety, depression and he denies suicidal ideation at this time. SOC: Patient is unemployed on SSI, lives in a custodial and denies legal issues. 1. Sedative use disorder, on benzodiazepine taper Plan: 1. Valium protocol, to complete 04/16. 2. Referred to counselor maggie Jacobson asking for letter so that he can return to his custodial
[2020-04-15] MEDS: MELATONIN 5 MG TABLETS PO SCH (22:18)
[2020-04-15] MEDS: THIAMINE HCL 100 MG TABLET (FP) PO SCH (22:18)
[2020-04-16] MEDS ORDERED: diazePAM 5 MG TABLET PO ONE (06:00)
[2020-04-16] MEDS: GABAPENTIN 300 MG CAPSULE PO SCH (06:12)
[2020-04-16] MEDS: BUPRENORPHINE/NALOXONE 8 MG/2 MG FILM PACKET SL SCH (06:12)
[2020-04-16] MEDS: PANTOPRAZOLE 40 MG TABLET PO SCH (06:12)
[2020-04-16] MEDS: TAMSULOSIN HCL 0.4 MG CAP PO SCH (09:39)
[2020-04-16] MEDS: PRENATAL VITAMINS W/ FOLIC ACID TABLET (FP) PO SCH (09:39)
[2020-04-16] MEDS: NICOTINE 14 MG/24 HOURS TOPICAL PATCH TD SCH (09:39)
[2020-04-16 11:08] VITALS: BP 133/86; PULSE 80; TEMP 97.7
--- NOTE | 2020-04-16 15:01 | DS ---
[facility] Detox Discharge Summary Admission Date: 04/12/20 Discharge Date: 04/16/20 - History Present History: Sedative Dependence Additional Comments: Pt is medically cleared and discharged today. Pt completed the detox protocol. pt is encouraged to follow-up with an outpatient CD program and also to follow- up with his pmd which he verbalized understanding. Pt is AOX3, in no acute respiratory distress, Full ROM, and ambulatory. Pertinent Past History: h/o benzo use disorder. - Physical Exam Results Vital Signs: Vital Signs Temperature 97.7 F 04/16/20 08:32 Pulse Rate 80 04/16/20 08:32 Respiratory Rate 18 04/16/20 08:32 Blood Pressure 133/86 04/16/20 08:32 O2 Sat by Pulse Oximetry (%) 95 04/16/20 05:45 Vital Signs 04/16/20 08:32 Temperature 97.7 F Pulse Rate 80 Respiratory 18 Rate Blood Pressure 133/86 Laboratory Last Values WBC 5.5 K/mm3 (4.0-10.0) 04/14/20 07:00 RBC 4.74 M/mm3 (4.00-5.60) 04/14/20 07:00 Hgb 14.2 GM/dL (11.7-16.9) 04/14/20 07:00 Hct 42.1 % (35.4-49) 04/14/20 07:00 MCV 88.8 fl (80-96) 04/14/20 07:00 MCH 30.0 pg (25.7-33.7) 04/14/20 07:00 MCHC 33.8 g/dl (32.0-35.9) 04/14/20 07:00 RDW 13.9 % (11.9-15.9) 04/14/20 07:00 Plt Count 170 K/MM3 (134-434) 04/14/20 07:00 MPV 8.9 fl (7.5-11.1) 04/14/20 07:00 Sodium 140 mmol/L (136-145) 04/14/20 07:00 Potassium 4.3 mmol/L (3.5-5.1) 04/14/20 07:00 Chloride 105 mmol/L (98-107) 04/14/20 07:00 Carbon Dioxide 31 mmol/L (21-32) 04/14/20 07:00 Anion Gap 5 MMOL/L (8-16) L 04/14/20 07:00 BUN 16.6 mg/dL (7-18) 04/14/20 07:00 Creatinine 0.7 mg/dL (0.55-1.3) 04/14/20 07:00 Est GFR (CKD-EPI)AfAm 118.88 04/14/20 07:00 Est GFR (CKD-EPI)NonAf 102.57 04/14/20 07:00 Random Glucose 81 mg/dL (74-106) 04/14/20 07:00 Calcium 8.7 mg/dL (8.5-10.1) 04/14/20 07:00 Total Bilirubin 0.2 mg/dL (0.2-1) 04/14/20 07:00 AST 10 U/L (15-37) L 04/14/20 07:00 ALT 17 U/L (13-61) 04/14/20 07:00 Alkaline Phosphatase 66 U/L (45-117) 04/14/20 07:00 Total Protein 6.0 g/dl (6.4-8.2) L 04/14/20 07:00 Albumin 3.2 g/dl (3.4-5.0) L 04/14/20 07:00 Syphilis Serology Non-reactive (NONREACTIVE) 04/14/20 07:00 COVID-19 ([facility]) Not detected (Not Detected) 04/12/20 19:30 Labs noted. Pertinent Admission Physical Exam Findings: withdrawal symptoms. - Treatment Hospital Course: Detox Protocol Followed, Detoxed Safely, Responded well, Discharged Condition Good - Medication Discharge Medications: Ambulatory Orders Buprenorphine HCl/Naloxone HCl [Suboxone 8 mg-2 mg Sl Tablets] 1 each SL BID 04/12/20 Gabapentin [Neurontin -] 300 mg PO TID 04/12/20 Pantoprazole Sodium [Protonix -] 40 mg PO DAILY 04/12/20 Tamsulosin HCl [Flomax] 0.4 mg PO DAILY 04/12/20 - Diagnosis (1) BPH (benign prostatic hyperplasia) Status: Chronic Qualifiers: Lower urinary tract symptom presence: unspecified whether lower urinary tract symptoms present Qualified Code(s): N40.0 - Benign prostatic hyperplasia without lower urinary tract symptoms (2) CHF (congestive heart failure) Status: Chronic Qualifiers: Heart failure type: unspecified Heart failure chronicity: unspecified Qualified Code(s): I50.9 - Heart failure, unspecified (3) COPD (chronic obstructive pulmonary disease) Status: Chronic Qualifiers: COPD type: unspecified COPD Qualified Code(s): J44.9 - Chronic obstructive pulmonary disease, unspecified (4) GERD (gastroesophageal reflux disease) Status: Chronic Qualifiers: Esophagitis presence: esophagitis presence not specified Qualified Code(s): K21.9 - Gastro-esophageal reflux disease without esophagitis (5) Nicotine dependence Status: Chronic Qualifiers: Nicotine product type: cigarettes Substance use status: uncomplicated Qualified Code(s): F17.210 - Nicotine dependence, cigarettes, uncomplicated (6) PVD (peripheral vascular disease) Status: Chronic (7) Benzodiazepine dependence Status: Acute - AMA Did Patient Leave Against Medical Advice: No
== END 2020-04-16 10:03 | disposition home or self-care (01) | DRG 140 ==
LOC: YASAS 17:16 → Y3N 19:21
PROVIDERS: ADMIT Allergy & Immunology; ATTEND Allergy & Immunology
PROC: HZ2ZZZZ Detoxification Services for Substance Abuse Treatment (ICD-10-PCS; principal; 2020-04-12)
DX: J44.9 Chronic obstructive pulmonary disease, unspecified (principal); F13.230 Sedative, hypnotic or anxiolytic dependence with withdrawal, uncomplicated; F11.20 Opioid dependence, uncomplicated; F17.210 Nicotine dependence, cigarettes, uncomplicated; F19.24 Other psychoactive substance dependence with psychoactive substance-induced mood disorder; F32.9 Major depressive disorder, single episode, unspecified; F41.9 Anxiety disorder, unspecified; B19.10 Unspecified viral hepatitis B without hepatic coma; I50.9 Heart failure, unspecified; I73.9 Peripheral vascular disease, unspecified; K21.9 Gastro-esophageal reflux disease without esophagitis; G47.00 Insomnia, unspecified; N40.0 Benign prostatic hyperplasia without lower urinary tract symptoms; R01.1 Cardiac murmur, unspecified; R60.0 Localized edema; Z86.19 Personal history of other infectious and parasitic diseases; Z56.0 Unemployment, unspecified; Z59.0 Homelessness
CPT/HCPCS: 36415; 71046-TC-FY; 80053; 85027; 86780; 93005; 93010; C9803; U0003